=== PATIENT | female | born 1955 | race Caucasian/White ===

== ENCOUNTER 2017-06-03 08:52 | Outpatient (CLI) | payer OTHER ==
[2017-06-03 12:19] LABS: #Basophils 0.1 thou/uL (0.0-0.2); #Eosinphils 0.2 thou/uL (0.0-0.7); #Lymphocytes 2.2 thou/uL (1.20-3.40); #Monocytes 0.4 thou/uL (0.11-0.59); #Neutrophils 2.6 thou/uL (1.40-6.50); %Basophils 1.4 % (0.0-1.0); %Eosinophils 3.1 % (0.0-10.0); %Lymphocytes 39.5 % (21.0-51.0); %Monocytes 7.3 % (0.0-10.0); %Neutrophils 48.6 % (42.0-75.0); Hemoglobin 14.5 g/dL (12.0-16.0); Mean Corpuscular HGB CONC 32.5 g/dL (32.0-36.0); Mean Corpuscular Volume 92.5 fl (81.0-99.0); Mean Platelet Volume 10.7 fL (7.4-10.4); Platelet Count 218 thou/uL (130-400); RBC Distribution Width 11.8 % (11.5-14.5); Red Blood Cell (RBC) Count 4.84 mill/uL (4.20-5.40); White Blood Cell (WBC) Count 5.4 thou/uL (4.8-10.8)
[2017-06-03 12:28] LABS: Bilirubin Negative (Negative); Blood, Urine Negative (Negative); Clarity Clear (Clear); Glucose, Urine (Dipstick) Negative (Negative); Leukocyte Trace (Negative); Nitrite Negative (Negative); Protein, Urine (Dipstick) Negative (Neg-Trace); Urobilinogen 0.2 mg/dL (0.2-1.0); pH, Urine 5.5 (5.0-9.0)
[2017-06-03 12:43] LABS: Bacteria/HPF Rare-Few HPF (None Seen); RBC/HPF 0-3 HPF (0-3); Squamous Epithelial 0-3 HPF (0-3)
[2017-06-03 12:53] LABS: ALT (SGPT) 12 U/L (8-55); AST (SGOT) 16 U/L (5-34); Albumin 4.3 g/dL (3.4-4.8); Alkaline Phosphatase 55 U/L (40-150); Anion Gap 14 mmol/L (10-20); BUN (Urea Nitrogen) 17 mg/dL (9.8-20.1); Bilirubin, Total 0.5 mg/dL (0.2-1.2); Calc. Creatinine Clearance 0 mL/min (70-130); Calcium 9.9 mg/dL (7.8-10.44); Carbon Dioxide 25 mmol/L (23-31); Cardiac Risk 2.9 (Less than 4.5); Chloride 105 mmol/L (98-107); Cholesterol 196 mg/dl (< 200 Desired); Estimated GFR-MDRD 68; Globulin 2.6 g/dL (2.4-3.5); Glucose 90 mg/dL (80-115); HDL Cholesterol 67 mg/dL (>60 Neg Risk); LDL Cholesterol, Calculated 117 mg/dL; Protein, Total 6.9 g/dL (6.0-8.3); Sodium 140 mmol/L (136-145); Triglycerides 58 mg/dL (Less than 150)
== END 2017-06-03 08:53 | disposition home or self-care (01) ==
LOC: NAVSJIPCSP 08:52
PROVIDERS: ATTEND Internal Medicine
DX: E78.5 Hyperlipidemia, unspecified (principal); E03.9 Hypothyroidism, unspecified; R30.0 Dysuria; Z79.899 Other long term (current) drug therapy
CPT/HCPCS: 36415; 80053; 80061; 81003; 81015; 84443; 85025; 87086

== ENCOUNTER 2019-08-14 10:44 | Outpatient (CLI) | payer OTHER ==
--- NOTE | 2019-08-14 11:00 | RAD ---
EXAM: Chest Two Views 08/14/2019 10:58 AM HISTORY: Wheezing and coughing COMPARISON: None. FINDINGS: Heart: Normal in size and contour. Pulmonary vessels: Normal. Costophrenic angles: Clear. Lungs: The lungs are hyperinflated but clear. Pneumothorax: None. Osseous structures:Intact. Additional findings: None. IMPRESSION: No significant acute intrathoracic disease.
[2019-08-14 11:33] LABS: #Eosinphils 0.2 thou/uL (0.0-0.7); #Lymphocytes 1.7 thou/uL (1.20-3.40); #Monocytes 0.4 thou/uL (0.11-0.59); #Neutrophils 4.9 thou/uL (1.40-6.50); %Basophils 0.4 % (0.0-1.0); %Eosinophils 2.9 % (0.0-10.0); %Monocytes 5.9 % (0.0-10.0); %Neutrophils 67.8 % (42.0-75.0); Hemoglobin 13.1 g/dL (12.0-16.0); Mean Corpuscular HGB CONC 33.6 g/dL (32.0-36.0); Mean Corpuscular Hemoglobin 30.8 pg (27.0-31.0); Mean Corpuscular Volume 91.8 fL (78.0-98.0); Mean Platelet Volume 10.7 fL (7.4-10.4); Platelet Count 218 thou/uL (130-400); RBC Distribution Width 12.1 % (11.5-14.5); Red Blood Cell (RBC) Count 4.23 mill/uL (4.20-5.40); White Blood Cell (WBC) Count 7.2 thou/uL (4.8-10.8)
== END 2019-08-14 10:45 | disposition home or self-care (01) ==
LOC: NAV LAB 10:44
PROVIDERS: ATTEND Family Medicine
DX: J40 Bronchitis, not specified as acute or chronic (principal)
CPT/HCPCS: 36415; 71046; 85025; 87804